=== PATIENT | female | born 1995 | race Caucasian/White ===

== ENCOUNTER 2021-09-01 09:31 | Emergency (ER) | payer OTHER, SELFPAY ==
[2021-09-01 09:37] VITALS: BP 143/97; PULSE 111; RESP 18; TEMP 36.7; O2SAT 100
--- NOTE | 2021-09-01 10:00 | ED.NEUROSD ---
HPI - Neuro Symptoms/Deficit General Chief Complaint: Suspected CVA Stated Complaint: left sided facial drooping Time Seen by Provider: 09/01/21 09:36 Source: patient and RN notes reviewed Mode of arrival: ambulatory Limitations: no limitations History of Present Illness HPI Narrative: This is a healthy 26 year old female who presents for evaluation of left facial droop. She woke up this morning unable to move left side of her face. She is unable to close her left eye. She denies blurred vision, focal weakness, numbness, tingling, chest pain , or headache. yesterday she has some postauricular pain but it has resolved. She is extremely anxious. Related Data Allergies Allergy/AdvReac Type Severity Reaction Status Date / Time No Known Allergies Allergy Verified 09/01/21 09:42 Review of Systems Review of Systems: All systems reviewed & are unremarkable except as noted in HPI and below PMFSH Past Medical History Medical History (Updated 09/01/21 @ 10:06 by Lynsey Duckworth MD) Esophageal reflux Surgical History Surgical History (Updated 09/01/21 @ 10:03 by Lynsey Duckworth MD) No pertinent past surgical history Social History Social History Smoking status: Never smoker Alcohol intake: never Exam Narrative: GENERAL: Well-appearing, well-nourished, and in no acute distress. HEAD: Normocephalic, atraumatic EYES: PERRLA and EOMI, conjunctiva clear without discharge EARS: TM's clear bilaterally without erythema or dullness NOSE: Nares clear, no rhinorrhea or epistaxis THROAT:Mucous membranes moist, Oropharynx normal without erythema, exudate, peritonsillar swelling or fluctuance NECK: Supple, without lymphadenopathy or mass RESPIRATORY: No respiratory distress, Airway patent, Respirations non-labored, Clear to auscultation without rales, rhonchi or wheeze HEART: Regular rate and rhythm. No murmur heard. Normal peripheral pulses. ABDOMEN: Soft, nontender, nondistended, normal active bowel sounds. No masses. No rebound or guarding, No organomegaly. EXTREMITIES: No edema, normal strength with full range of motion. SKIN: Warm, dry, normal color without rash NEURO: Alert and oriented x3. PSYCH: Normal mood and affect. Const: Orientation/consciousness: patient oriented x3 Neuro: General: patient oriented x3 Cranial nerves: Yes Bilaterally intact EOM present, Yes Nystagmus not present and Yes Other cranial nerve findings present (left upper and lower facial deficity droop, unable to lift left eye brow) Speech: normal speech Gait exam (Neuro): Normal gait present Motor exam (neuro): 5/5 motor strength present throughout, Pronator motor function not present, No tremor noted, No asterixis, Motor fasciculations not present and Motor abnormalities not present Sensory Exam: normal sensation Coordination: [id number] test normal and [id number] test normal Course Reevaluation(s) Reevaluation #1: 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 I also discussed discharge treatment and plan. She understands this can take weeks to months to resolve. No neuroimaging needed at this time Date: 09/01/21 Time: 10:04 Vital Signs Vital signs: Vital Signs Temperature 98.0 F 09/01/21 09:37 Pulse Rate 111 H 09/01/21 09:37 Respiratory Rate 18 09/01/21 09:37 Blood Pressure 143/97 H 09/01/21 09:37 Pulse Oximetry 100 09/01/21 09:37 Temperature 98.0 F 09/01/21 09:37 Pulse Rate 86 09/01/21 10:17 Respiratory Rate 25 H 09/01/21 10:17 Blood Pressure 118/78 09/01/21 10:17 Pulse Oximetry 99 09/01/21 10:17 Discharge Plan Discharge Clinical Impression: Facial paralysis/Alton palsy Patient Disposition: Home, Self-Care Condition: Stable Instructions: Antibiotic Form, Desouza Palsy (ED) Additional Instructions: Today you were found to have Desouza's Palsy. Take medication as prescribed. Follow up with your primary care p
[2021-09-01 10:17] VITALS: BP 118/78; PULSE 86; RESP 25; O2SAT 99
== END 2021-09-01 10:21 | disposition home or self-care (01) ==
PROVIDERS: Emergency Provider General Practice; PCP Family Medicine
DX: G51.0 Bell's palsy (principal); K21.9 Gastro-esophageal reflux disease without esophagitis
CPT/HCPCS: 99283

== ENCOUNTER 2022-12-18 10:09 | Outpatient (CLI) | payer OTHER, SELFPAY ==
[2022-12-18 19:01] LABS: Alanine Aminotransferase 17 U/L (6-35); Albumin Level 4.8 g/dL (3.5-5.1); Alkaline Phosphatase 60 U/L (38-126); Anion Gap 8 mmol/L (8-16); Aspartate Amino Transferase 22 U/L (14-36); Bilirubin,Total 0.6 mg/dL (0.2-1.3); Blood Urea Nitrogen 11 mg/dL (7-17); Calcium 9.2 mg/dL (8.4-10.2); Carbon Dioxide 25 mmol/L (22-30); Chloride 105 mmol/L (98-107); Cholesterol 225 mg/dL (0-200); Estimated Glomerular Filt Rate > 60; Glucose 93 mg/dL (65-110); HDL Direct 64 mg/dL; Potassium 4.5 mmol/L (3.4-5.0); Sodium 138 mmol/L (137-145); Triglycerides 128 mg/dL (<150)
[2022-12-18 19:12] LABS: LDL Cholesterol Direct 119 mg/dL
[2022-12-18 20:06] LABS: Basophils Percent Auto 0.5 % (0.2-1.2); Eosinophils Absolute Auto 0.1 K/mm3 (0-0.3); Eosinophils Percent Auto 1.2 % (0-4.4); Hematocrit 38.4 % (37.0-47.0); Hemoglobin 12.5 g/dL (12.0-15.0); Immature Granulocyte Absolute 0.03 K/mm3 (0.00-0.031); Immature Granulocyte Percent A 0.4 % (0-0.5); Lymphocytes Absolute Auto 1.49 K/mm3 (0.9-3.2); Lymphocytes Percent Auto 18.3 % (18.3-44.2); Mean Corpuscular HGB Conc 32.6 g/dl (32-36); Mean Corpuscular Hemoglobin 30.5 pg (26-34); Mean Corpuscular Volume 93.7 fl (80-100); Mean Platelet Volume 9.4 fl (7.4-10.4); Monocytes Absolute Auto 0.5 K/mm3 (0.1-0.6); Monocytes Percent Auto 6.5 % (2.6-8.5); Neutrophils Absolute Auto 5.9 K/mm3 (1.3-6.7); Neutrophils Percent Auto 73.1 % (45.5-73.1); Platelet Count Result 335 k/mm3 (150-375); White Blood Count 8.1 K/mm3 (4.5-10.0)
== END 2022-12-18 10:10 | disposition home or self-care (01) ==
LOC: ANHGOSHLAB 10:10
PROVIDERS: PCP Family Medicine; Visit Provider Family Medicine
DX: Z00.00 Encounter for general adult medical examination without abnormal findings (principal); G51.0 Bell's palsy
CPT/HCPCS: 36415; 80053; 80061; 84443; 85025

== ENCOUNTER 2023-08-02 22:03 | Emergency (ER) | payer OTHER, SELFPAY ==
[2023-08-02 22:04] VITALS: BP 139/87; PULSE 106; RESP 16; TEMP 36.7; O2SAT 100
--- NOTE | 2023-08-02 23:33 | ED.SKABFB ---
HPI - Skin/Abscess/Foreign Bdy General Chief complaint: Skin/Abscess/Foreign Body Stated complaint: bump under breast Time Seen by Provider: 08/02/23 23:03 Source: patient Mode of arrival: ambulatory Limitations: no limitations History of Present Illness HPI narrative: This is a 28-year-old female that presents to the ER for a lump on her bra line. Reports this has been present over the last couple of weeks. Reports the last couple of days it became painful and red which prompted her to be seen. Denies fever or drainage. Related Data Home Medications Medication Instructions Recorded Confirmed norethindrone acetate 1 mg-ethinyl 1 tablet PO DAILY 12/18/22 12/18/22 estradiol 20 mcg tablet (Loestrin) Allergies Allergy/AdvReac Type Severity Reaction Status Date / Time No Known Allergies Allergy Verified 08/02/23 22:08 Review of Systems Review of Systems: CONSTITUTIONAL: Denies fever SKIN: Reports abscess All systems reviewed & are unremarkable except as noted in HPI and below PMFSH Past Medical History Medical History Esophageal reflux Surgical History Surgical History No pertinent past surgical history Social History Social History (Updated 12/18/22 @ 10:06 by Myron Rock MA) Smoking status: Never smoker Alcohol intake: never Substance use: never Substance use type: does not use Lack of Transportation: No Lack of Food: Never True Current Housing: I Have Housing Concerned About Future Housing: No Difficulty Paying Gas/Electric Bills: No Difficulty Paying for Meds: No Currently Unemployed: No Education: Bachelor's Degree Difficulty w/ Childcare or Family Care: No Exam Narrative: GENERAL: Well-appearing, well-nourished, and in no acute distress. HEAD: Normocephalic, atraumatic. EYES: EOMI. EXTREMITIES: Normal range of motion. No edema. SKIN: Warm, dry, no rash. 2cm circular area of edema and erythema with central fluctuance with mild surrounding cellulitis NEURO: No focal deficits. Alert and oriented x3. PSYCH: Normal mood and affect Course Course Emergency Course: Patient was educated on wound care. Agrees with further plan Vital Signs Vital signs: Vital Signs Temperature 98.1 F 08/02/23 22:04 Pulse Rate 106 H 08/02/23 22:04 Respiratory Rate 16 08/02/23 22:04 Blood Pressure 139/87 08/02/23 22:04 Pulse Oximetry 100 08/02/23 22:04 Oxygen Delivery Room Air 08/02/23 22:04 Temperature 98.1 F 08/02/23 22:04 Pulse Rate 106 H 08/02/23 22:04 Respiratory Rate 16 08/02/23 22:04 Blood Pressure 139/87 08/02/23 22:04 Pulse Oximetry 100 08/02/23 22:04 Oxygen Delivery Room Air 08/02/23 22:04 Procedures Abscess I/D other: Date of Incision: 08/03/23 Local Anesthetic: lidocaine 1% and with epi Amount of anesthesia used (mL): 2 Technique: incised with #11 blade Irrigation: Yes Packing used?: plain I&D Results: Pus and Blood Abcess I&D Additional Comments: Loculations broken up. Patient tolerated procedure well. No complications MDM - Skin/Abscess/Foreign Bdy MDM Narrative Medical decision making narrative: Patient presents to the ER for an abscess to the right chest wall. She is afebrile and nontoxic-appearing. Abscess was successfully drained. Started on oral antibiotics. She is to follow-up with her primary provider. She was given warnings to return to the ER Differential Diagnosis Differential diagnosis: Likely abscess of skin or subcutaneous tissue, cellulitis and other (cyst) Critical Care Time Critical Care Time Critical Care Time: No Discharge Plan Discharge Clinical Impression: Abscess Patient Disposition: Home, Self-Care Condition: Stable Instructions: Antibiotic Form, Abscess (ED) Additional Instructions
[2023-08-03] MEDS: CEPHALEXIN 500 MG CAPSULE PO (00:19)
== END 2023-08-03 00:28 | disposition home or self-care (01) ==
PROVIDERS: Emergency Provider Physician Assistant; PCP Family Medicine
DX: L02.213 Cutaneous abscess of chest wall (principal); K21.9 Gastro-esophageal reflux disease without esophagitis
CPT/HCPCS: 10061; 87070; 87205; 99283; A9270